=== PATIENT | male | born 1990 | race Caucasian/White ===

== ENCOUNTER → 2019-09-23 | Emergency (ER) | payer SELFPAY ==
[~2019-09-23] VITALS: Ht 180.3 cm; Wt 93.0 kg
[~2019-09-23] MED LIST: BACITRACIN TOP OINT 1 UD PKG TOP ONE; KETOROLAC TROMETH 60MG/2ML VIAL IM ONE; cefTRIAXone SOD 1,000 MG VL IM ONE
[2019-09-24 01:30] VITALS: BP 143/78
== END | disposition home or self-care (01) ==
LOC: ER 22:23
DX: L03.011 Cellulitis of right finger (principal)
CPT/HCPCS: 26010; 96372; J0696; J1885